=== PATIENT | female | born 1980 | race American Indian/Alaskan Native ===

== ENCOUNTER 2017-08-21 23:01 | Emergency (ER) | payer BC ==
[2017-08-21 23:17] VITALS: BP 149/90
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
== END 2017-08-22 03:15 | disposition home or self-care (01) ==
LOC: ED 23:01
DX: M54.5 Low back pain (principal); I10 Essential (primary) hypertension; V87.7XXA Person injured in collision between other specified motor vehicles (traffic), initial encounter; Y93.89 Activity, other specified; Y99.8 Other external cause status; Y92.410 Unspecified street and highway as the place of occurrence of the external cause
CPT/HCPCS: 99282